=== PATIENT | male | born 1965 | race American Indian/Alaskan Native ===

== ENCOUNTER 2021-11-09 07:18 | Emergency (ER) | payer SELFPAY ==
[2021-11-09 07:33] VITALS: BP 125/80
--- NOTE | 2021-11-09 08:14 | XRay Report ---
Right shoulder 3 views INDICATION: Injury FINDINGS: Glenohumeral joint and AC joint appear normal. No acute fracture or dislocation. Right humerus 3 views INDICATION: Injury FINDINGS: Humeral shaft appears normal and intact. No acute fracture is identified. No soft tissue ab normality. Signer Name: Zeeshan Navarro MD Signed: 11/09/2021 8:09 AM Workstation Name: [employer]
[2021-11-09] MEDS ORDERED: KETOROLAC 30 MG/1 ML INJ IM ONE (08:39)
[2021-11-09] MEDS ORDERED: HYDROcodone/ACETAMINOPHEN 5-325 MG TAB PO ONE (08:39)
[2021-11-09] MEDS ORDERED: CYCLOBENZAPRINE 10 MG TAB PO ONE (08:39)
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
== END 2021-11-09 09:27 | disposition home or self-care (01) ==
LOC: ED 07:18
DX: S49.92XA Unspecified injury of left shoulder and upper arm, initial encounter (principal); S49.91XA Unspecified injury of right shoulder and upper arm, initial encounter; I10 Essential (primary) hypertension; X58.XXXA Exposure to other specified factors, initial encounter; Y93.89 Activity, other specified; Y92.89 Other specified places as the place of occurrence of the external cause; Y99.8 Other external cause status
CPT/HCPCS: 73030; 73060; 96372; 99283; J1885